=== PATIENT | female | born 1990 | race Caucasian/White ===

== ENCOUNTER 2018-10-05 17:37 | Emergency (ER) | payer OTHER ==
[~2018-10-05] VITALS: Ht 154.9 cm; Wt 45.5 kg
[2018-10-05 17:40] VITALS: BP 122/86
--- NOTE | 2018-10-05 17:48 | NUR ---
PT AMBULATED BACK TO THE [facility] WITH STEADY GAIT.
--- NOTE | 2018-10-05 19:53 | NUR ---
PT AMBULATED TO THE BATHROOM WITH STEADY GAIT. PT GIVEN URINE CUP.
--- NOTE | 2018-10-05 20:00 | NUR ---
URINE OBTAINED FROM PT.
--- NOTE | 2018-10-05 20:24 | NUR ---
PT AMBULATED TO ER BED 07
--- NOTE | 2018-10-05 20:30 | NUR ---
28 Y FEMALE, BIB MOTHER TO ER C/O DIARRHEA X 2 WKS, LEFT LOWER ABDOMINAL PAIN, NAUSEA X1 WEEK. PT STATES THAT WHEN SHE HAS A BOWEL MOVEMENT THAT SHE GETS HOT FLASHES AND NAUSEATED. PT DENIES FEVER, VOMITING, DYSURIA. PT STATED THAT SHE WAS ON AMOXICILLIN AND METRONIDAZOLE THAT WAS PRESCRIBE BY HER DENTIST 3WKS AGO WHICH SHE STOPS TAKING, AND WAS SEEN BY PAPER CONTROL CLERK FOR DIARRHEA WHO PRESCRIBED CULTURELLE PROBIOTICS, BUT PT STATES THAT SHE HASN'T TAKEN THE PROBIOTIC. AAOX4, [facility] [address] DOLL MADE AWARE, WILL CONTINUE TO MONITOR CLOSELY, BED LOCKED IN LOWEST POSITION, SIDERAILS UPX1. PMH: DENIES ALLERGIES: "CHEMICALS"
[2018-10-05 20:41] LABS: BASOPHILS % (AUTO) 0.2 % (0.0-2.0); EOSINOPHILS % (AUTO) 0.4 % (0.0-4.0); HEMATOCRIT 40.6 % (36-48); HEMOGLOBIN 13.5 g/dL (12.0-16.0); LYMPHOCYTES % (AUTO) 25.1 % (20.5-51.1); MEAN CORPUSCULAR HEMOGLOBIN 29 pg (27-31); MEAN CORPUSCULAR HGB CONC 33 g/dL (33-37); MEAN CORPUSCULAR VOLUME 85.6 fL (80-94); MONOCYTES # (AUTO) 0.5 K/uL (0.8-1.0); MONOCYTES % (AUTO) 6.6 % (1.7-9.3); NEUTROPHILS # (AUTO) 5.5 K/uL (1.8-7.7); NEUTROPHILS % (AUTO) 67.7 % (42.2-75.2); PLATELET COUNT (AUTO) 181 K/uL (140-450); RED BLOOD CELL COUNT(AUTO) 4.74 MIL/uL (4.20-5.40); RED CELL DISTRIBUTION WIDTH 12.7 % (11.6-13.7); WHITE BLOOD COUNT (AUTO) 8.1 K/uL (4.8-10.8)
[2018-10-05 20:52] LABS: ANION GAP 13.4 (8-16); CARBON DIOXIDE 26.7 mmol/L (21-32); CREATININE 0.7 mg/dL (0.6-1.3); POTASSIUM 3.1 mmol/L (3.5-5.1)
[2018-10-05 20:59] LABS: ALBUMIN 4.1 g/dL (3.4-5.0); TOTAL BILIRUBIN 0.4 mg/dL (0.0-1.0)
--- NOTE | 2018-10-05 21:10 | NUR ---
DR. DOLL AT PT BEDSIDE
[2018-10-05 21:30] VITALS: BP 108/62
--- NOTE | 2018-10-05 21:30 | NUR ---
Patient discharged with v/s stable. Written and verbal after care instructions given and explained. Patient alert, oriented and verbalized understanding of instructions. Ambulatory with steady gait. All questions addressed prior to discharge. ID band removed. Patient advised to follow up with PMD. Rx of VANCOMYCIN HYDROCHLORIDE 125MG, MOTRIN 600MG AND CIPRO 500MG given. Patient educated on indication of medication including possible reaction and side effects. Opportunity to ask questions provided and answered.
== END 2018-10-05 21:30 | disposition home or self-care (01) ==
LOC: MED 17:37
DX: R19.7 Diarrhea, unspecified (principal); R10.32 Left lower quadrant pain; R11.0 Nausea
CPT/HCPCS: 36415; 80053; 81002; 81025; 83690; 85025; 99283